=== PATIENT | male | born 1955 | race Caucasian/White ===

== ENCOUNTER 2021-10-24 06:48 | Inpatient (IN) ==
[2021-10-03 11:51] LABS: Basophils % 0.5 % (0.0-0.8); Eosinophils # 0.1 10*3/uL (0.0-0.87); Eosinophils % 1.8 % (0.00-10.9); Hematocrit 43.9 VOL% (42.0-52.0); Hemoglobin 14.4 GM/DL (14.0-18.0); Immature Granulocytes % 1.5 %; Immature Granulocytes Absolute 0.09 #; Lymphocytes # 1.3 10*3/uL (1.4-4.0); Mean Corpuscular HGB Conc 32.8 GM/DL (32-36); Mean Corpuscular Volume 88.2 FL (87-102); Mean Platelet Volume 11.3 FL (9.6-12.0); Monocytes # 0.6 10*3/uL (0.11-0.8); Neutrophils % 65.2 % (38.7-73.9); Red Blood Count 4.98 MC/CUMM (3.8-5.5); Red Cell Distribution Width 14.6 % (9.3-17.3); White Blood Count 6.1 T/CUMM (4-12)
[2021-10-03 11:54] LABS: Platelet Count 140 T/CUMM (130-400)
[2021-10-03 11:58] LABS: INR 0.9; PT Patient Result 10.5 SECS (10.1-12.1)
[2021-10-03 12:05] LABS: Albumin 3.6 G/DL (3.4-5.0); Bilirubin,Total 0.4 MG/DL (0.20-1.00); Calcium 9.1 MG/DL (8.5-10.1); Osmolality,Calculated 288.5 MOS/KG (273-304); Potassium 5.3 MMOL/L (3.5-5.1); Total Protein 6.4 G/DL (6.4-8.2)
[2021-10-03 12:17] LABS: Anisocytosis Slight; Platelet Estimate Adequate
[2021-10-24] MEDS ORDERED: HEPARIN 5,000 UNIT/1 ML VIAL ONE (07:03)
[2021-10-24 07:31] LABS: Calcium 9.4 MG/DL (8.5-10.1); Osmolality,Calculated 299.4 MOS/KG (273-304); Potassium 4.8 MMOL/L (3.5-5.1)
[2021-10-24] MEDS: SODIUM CHLORIDE 0.9% 1,000 ML IV SCH ×3 (07:45→23:42)
[2021-10-24] MEDS ORDERED: DEXTROSE 50% 25 GM/50 ML VIAL IV PRN ×2 (09:03→09:11)
[2021-10-24] MEDS ORDERED: GLUCAGON 1 MG VIAL IM PRN ×3 (09:03→09:11)
[2021-10-24] MEDS ORDERED: NON-FORMULARY MEDICATION (Evolocumab [Repatha Sureclick] 140 mg/mL Pen Injector) SUBCUT SCH (09:15)
[2021-10-24] MEDS: INSULIN REGULAR 100 UNIT/ML SUBCUT SCH ×5 (09:15→20:57)
[2021-10-24] MEDS ORDERED: DEXTROSE 10% 250 ML BAG IV PRN (11:03)
[2021-10-24] MEDS ORDERED: LORazepam 2 MG/1 ML VIAL IV PRN (12:22)
[2021-10-24] MEDS: MULTIVITAMIN (CENTRUM) TABLET PO SCH (13:25)
[2021-10-24] MEDS: THIAMINE 100 MG TABLET PO SCH (13:25)
[2021-10-24] MEDS: FOLIC ACID 1 MG TABLET PO SCH (13:26)
[2021-10-24] MEDS: MAGNESIUM OXIDE 400 MG TABLET PO SCH (20:57)
[2021-10-24] MEDS ORDERED: INSULIN GLARGINE 100 UNIT/ML SUBCUT SCH (21:00)
[2021-10-25] MEDS: INSULIN REGULAR 100 UNIT/ML SUBCUT SCH ×6 (01:52→20:16)
[2021-10-25 05:32] LABS: Basophils % 0.6 % (0.0-0.8); Eosinophils # 0.1 10*3/uL (0.0-0.87); Eosinophils % 1.8 % (0.00-10.9); Hematocrit 40.1 VOL% (42.0-52.0); Hemoglobin 13.3 GM/DL (14.0-18.0); Immature Granulocytes % 1.3 %; Immature Granulocytes Absolute 0.09 #; Lymphocytes # 1.8 10*3/uL (1.4-4.0); Lymphocytes % 26.3 % (21.2-54.2); Mean Corpuscular HGB Conc 33.2 GM/DL (32-36); Mean Corpuscular Volume 89.5 FL (87-102); Mean Platelet Volume 10.9 FL (9.6-12.0); Monocytes # 0.6 10*3/uL (0.11-0.8); Monocytes % 8.9 % (1.7-12.7); Neutrophils % 61.1 % (38.7-73.9); Platelet Count 152 T/CUMM (130-400); Red Blood Count 4.48 MC/CUMM (3.8-5.5); Red Cell Distribution Width 14.5 % (9.3-17.3); White Blood Count 6.9 T/CUMM (4-12)
[2021-10-25 05:42] LABS: Calcium 8.6 MG/DL (8.5-10.1); Osmolality,Calculated 280.5 MOS/KG (273-304); Potassium 3.5 MMOL/L (3.5-5.1)
[2021-10-25] MEDS ORDERED: HEPARIN/NACL 0.9% 2 UNITS/ML 1,000 UNIT/500 ML BAG IV ONE (06:15)
[2021-10-25] MEDS ORDERED: PHENYLEPHRINE DRIP 20 MG/250 ML PREMIX IV ONE (07:38)
[2021-10-25] MEDS ORDERED: NITROGLYCERIN DRIP 50 MG/250 ML BOTTLE IV ONE (07:39)
[2021-10-25] MEDS ORDERED: propofoL 200 MG/20 ML VIAL IV ONE (07:43)
[2021-10-25] MEDS ORDERED: fentaNYL 100 MCG/2 ML VIAL ONE (07:43)
[2021-10-25] MEDS ORDERED: LIDOCAINE 2% 5 ML VIAL ONE (07:43)
[2021-10-25] MEDS ORDERED: ROCURONIUM 50 MG/5 ML VIAL IV ONE (07:44)
[2021-10-25] MEDS ORDERED: ETOMIDATE 40 MG/20 ML VIAL IV ONE (07:46)
[2021-10-25] MEDS ORDERED: ONDANSETRON 4 MG/2 ML VIAL ONE (07:51)
[2021-10-25] MEDS ORDERED: SEVOFLURANE 1 UNIT/15 MINUTE INH ONE (07:51)
[2021-10-25] MEDS ORDERED: MIDAZOLAM 2 MG/2 ML VIAL ONE (08:04)
[2021-10-25] MEDS: atenoloL 25 MG TABLET PO SCH (08:06)
[2021-10-25] MEDS ORDERED: HEPARIN 10,000 UNIT/10 ML VIAL ONE (08:27)
[2021-10-25] MEDS ORDERED: LORazepam 1 MG TABLET PO PRN (09:28)
[2021-10-25] MEDS ORDERED: LACTATED RINGERS 1,000 ML IV ONE (09:59)
[2021-10-25] MEDS ORDERED: NEOSTIGMINE 10 MG/10 ML VIAL ONE (09:59)
[2021-10-25] MEDS ORDERED: GLYCOPYRROLATE 0.4 MG/2 ML VIAL ONE (09:59)
[2021-10-25] MEDS ORDERED: SODIUM CHLORIDE 0.9% 1,000 ML IV ONE (09:59)
[2021-10-25] MEDS ORDERED: PROTAMINE SULFATE 50 MG/5 ML VIAL IV ONE (10:25)
[2021-10-25] MEDS ORDERED: PROMETHAZINE 25 MG/1 ML VIAL IM PRN (10:41)
[2021-10-25] MEDS ORDERED: DEXTROSE 50% 25 GM/50 ML VIAL IV PRN (10:41)
[2021-10-25] MEDS ORDERED: ONDANSETRON 4 MG/2 ML VIAL IV PRN (10:41)
[2021-10-25] MEDS ORDERED: oxyCODONE/ACETAMINOPHEN 5-325 MG TABLET PO PRN (10:41)
[2021-10-25] MEDS ORDERED: PHENYLEPHRINE DRIP 40 MG/250 ML PREMIX IV PRN (10:41)
[2021-10-25] MEDS ORDERED: NALOXONE 0.4 MG/ML VIAL IV PRN (10:41)
[2021-10-25] MEDS ORDERED: NITROPRUSSIDE 100 MG in DEXTROSE 5% 250 ML IV PRN (10:41)
[2021-10-25] MEDS ORDERED: GLUCAGON 1 MG VIAL IM PRN (10:41)
[2021-10-25] MEDS ORDERED: HYDROmorphone 1 MG/1 ML SYRINGE IV PRN ×2 (10:41)
[2021-10-25] MEDS ORDERED: DEXAMETHASONE 4 MG/1 ML VIAL ONE (10:51)
[2021-10-25 11:48] VITALS: BP 119/45
[2021-10-25] MEDS: SODIUM CHLORIDE 0.9% 1,000 ML IV SCH ×3 (11:55→16:41)
[2021-10-25] MEDS: FOLIC ACID 1 MG TABLET PO SCH (12:45)
[2021-10-25] MEDS: MAGNESIUM OXIDE 400 MG TABLET PO SCH ×2 (12:45→20:16)
[2021-10-25] MEDS: TAMSULOSIN 0.4 MG CAPSULE PO SCH (12:45)
[2021-10-25] MEDS: THIAMINE 100 MG TABLET PO SCH (12:45)
[2021-10-25] MEDS: ASPIRIN EC 81 MG TABLET PO SCH (12:45)
[2021-10-25] MEDS: MULTIVITAMIN (CENTRUM) TABLET PO SCH (12:45)
[2021-10-25] MEDS: oxyCODONE/ACETAMINOPHEN 5-325 MG TABLET PO PRN (16:49)
[2021-10-25] MEDS ORDERED: INSULIN GLARGINE 100 UNIT/ML SUBCUT SCH (21:00)
[2021-10-26] MEDS: SODIUM CHLORIDE 0.9% 1,000 ML IV SCH ×2 (01:15→16:26)
[2021-10-26 05:04] LABS: Calcium 7.8 MG/DL (8.5-10.1); Osmolality,Calculated 284.1 MOS/KG (273-304); Potassium 3.8 MMOL/L (3.5-5.1)
[2021-10-26] MEDS: INSULIN REGULAR 100 UNIT/ML SUBCUT SCH ×2 (07:25→12:40)
[2021-10-26] MEDS: FOLIC ACID 1 MG TABLET PO SCH (08:06)
[2021-10-26] MEDS: THIAMINE 100 MG TABLET PO SCH (08:06)
[2021-10-26] MEDS: MULTIVITAMIN (CENTRUM) TABLET PO SCH (08:06)
[2021-10-26] MEDS: atenoloL 25 MG TABLET PO SCH (08:06)
[2021-10-26] MEDS: ASPIRIN EC 81 MG TABLET PO SCH (08:06)
[2021-10-26] MEDS: MAGNESIUM OXIDE 400 MG TABLET PO SCH (08:07)
[2021-10-26] MEDS: TAMSULOSIN 0.4 MG CAPSULE PO SCH (08:07)
[2021-10-26] MEDS ORDERED: CLOPIDOGREL 75 MG TABLET PO SCH (09:00)
[2021-10-26] MEDS: oxyCODONE/ACETAMINOPHEN 5-325 MG TABLET PO PRN (09:48)
[2021-10-26] MEDS ORDERED: GLUCAGON 1 MG VIAL IM PRN (09:49)
[2021-10-26] MEDS ORDERED: DEXTROSE 50% 25 GM/50 ML VIAL IV PRN (09:49)
[2021-10-26] MEDS ORDERED: hydrALAZINE 25 MG TABLET PO PRN (10:04)
[2021-10-26] MEDS ORDERED: INSULIN GLARGINE 100 UNIT/ML SUBCUT ONE (14:45)
[2021-10-29] MEDS ORDERED: ERGOCALCIFEROL 50,000 UNIT CAPSULE PO SCH (09:00)
== END 2021-10-26 15:36 | disposition home or self-care (01) | DRG 39 ==
LOC: N.SDSINP 06:48 → N.5E 14:21 → N.ICU 10-25 11:34
PROVIDERS: ADMIT Surgery; ATTEND Surgery